=== PATIENT | male | born 1965 | race Two or more races ===

== ENCOUNTER 2021-08-24 07:04 | Outpatient (CLI) | payer OTHER | END 2021-08-24 07:29 | disposition home or self-care (01) | LOC: MRI 07:04 | PROVIDERS: ATTEND Orthopaedic Surgery | DX: S83.200A Bucket-handle tear of unspecified meniscus, current injury, right knee, initial encounter (principal); M25.561 Pain in right knee; M25.562 Pain in left knee | CPT/HCPCS: 73721 ==